=== PATIENT | female | born 1935 | race Caucasian/White ===

== ENCOUNTER 2020-01-08 12:54 | Emergency (ER) | payer MEDICARE, BC ==
[~2020-01-08] VITALS: Ht 157.5 cm; Wt 60.8 kg
[~2020-01-08 12:54] MED LIST: ACETAMINOPHEN325 M1; ACTONEL30 MG PO; ADULT LOW DOSE81 MG PO; ATACAND HCT 161 EACH PO; ATACAND8 MG PO; ATIVAN0.5 MG PO; BENADRYL25 MG PO; BP Medication; CALCIUM 600 +1 EAC5 PO; CIPRO500 MG PO; CLARITIN10 MG PO; COCET TABLET1 EACH PO; DAILY MULTIPLE1 EAC2 PO; DIVALPROEX SOD125 MG PO; EXELON 9.5 MG9.5 MG TD; HYDROCHLOROTHIA25 M1 PO; KEFLEX500 MG PO; MIRALAX17 GM PO; MOBIC15 MG PO; MOM; NAMENDA 10 MG T10 MG PO; NORCO 5-325 TA1 EACH PO; ONE-A-DAY 50 P1 EACH PO; POTASSIUM CHLO10 ME1 PO; REMERON15 MG PO; SEROQUEL 25 MG25 M1; SIMVASTATIN40 MG PO; TAMIFLU75 MG PO; ZYPREXA
[2020-01-08 16:18] VITALS: BP 126/68
--- NOTE | 2020-01-09 12:49 | EKG ---
[place] [address] ELECTROCARDIOGRAM REPORT Name: ALEJANDRO MONTES DE OCA Room: [facility]#: [id number] Admission: 01/08/20 Attend Phys: Discharge: 01/08/20 Date of : 31 Date of Service: 01/08/20 1309 Report #: [id number] THIS REPORT FOR: //name// [facility] ED Test Date: 2020-01-08 Test Time: 13:09:05 Pat Name: ALEJANDRO MONTES ED OCA Department: Room: Gender: F Single Pointed Operator: ANDREA : 1935 Requested By: Humza Whitten Order Number: [id number] MD: Derek Jang Measurements Intervals [place] Rate: 100 P: -9 LA: 130 QRS: -54 QRSD: 103 T: 129 QT: 372 QTc: 480 Interpretive Statements Sinus tachycardia Left anterior fascicular block Abnormal R-wave progression, early transition LVH with secondary repolarization abnormality Anterior Q waves, possibly due to LVH Compared to ECG 08/17/2011 14:26:29 Left anterior fascicular block now present Left ventricular hypertrophy now present Early repolarization now present Q waves now present Sinus rhythm no longer present Atrial premature complex(es) no longer present Electronically Signed On 01-09-2020 12:49:20 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
== END 2020-01-08 16:19 | disposition home or self-care (01) ==
LOC: M.ERS 12:54
DX: K13.79 Other lesions of oral mucosa (principal); I10 Essential (primary) hypertension; E78.00 Pure hypercholesterolemia, unspecified; M19.90 Unspecified osteoarthritis, unspecified site; Z87.440 Personal history of urinary (tract) infections